=== PATIENT | male | born 1985 | race Caucasian/White ===

== ENCOUNTER 2020-06-29 09:48 | Emergency (ER) | payer BC ==
[~2020-06-29] VITALS: Ht 172.7 cm; Wt 65.9 kg
[2020-06-29 10:31] VITALS: BP 130/92
== END 2020-06-29 11:05 | disposition home or self-care (01) ==
LOC: ER 09:49
DX: J06.9 Acute upper respiratory infection, unspecified (principal); Z20.828 Contact with and (suspected) exposure to other viral communicable diseases
CPT/HCPCS: 36415; 87635; 99283